=== PATIENT | male | born 1990 | race Caucasian/White ===

== ENCOUNTER 2018-07-02 13:25 | Emergency (ER) | payer BC, OTHER ==
[2018-07-02 13:38] VITALS: BP 155/77; PULSE 78; TEMP 98.3; BMI 27.7
--- NOTE | 2018-07-02 14:07 | PDOC ---
History of Present Illness - General Chief Complaint: Injury Stated Complaint: RIGHT MIDDLE FINGER INJURY Time Seen by Provider: 07/02/18 13:56 - History of Present Illness Initial Comments: 07/02/18 18:06 Chief complaint: Finger injury History of present illness: Patient was working with hand tools, smashed the tip of his right third finger with the handle of a wrench. Pain of the distal phalanx. No other injuries Review of systems: Admits numbness and tingling of the distal pulp. Denies difficulty with movement of the DIPJ. Otherwise reviewed and negative Past medical history: Healthy male, no significant medical or surgical problems Social/family history reviewed and noncontributory Physical exam: Alert oriented well-developed well-nourished no acute distress cooperative Afebrile, vital signs normal Physical exam is entirely normal except for the right third finger. There is swelling ecchymoses and tenderness of the distal pulp, but this is well removed from the DIPJ. There is also a less than 25% subungual hematoma with no disruption of the nail or nailbed. There is no deformity of the fingertip. Full flexion and extension of the DIPJ. The skin is completely intact and there is no suggestion of pressure on the skin from underlying fracture X-ray: Comminuted fracture of the tuft. Minimal displacement. Alignment appears good. No penetration of skin. Impression: Closed fracture of the distal phalanx, no joint involvement Plan: Rest, elevation, analgesics, splinting for comfort. Follow-up with career placement specialist for further treatment. Patient fully ambulatory and in no distress upon discharge to follow-up as directed Past History - Past Medical History Allergies/Adverse Reactions: Allergies Allergy/AdvReac Type Severity Reaction Status Date / Time No Known Allergies Allergy Verified 07/02/18 13:27 Home Medications: Ambulatory Orders No Home Medications 0 dose .ROUTE UTDICT 06/02/12 Ibuprofen 800 mg PO QID PRN #20 tablet 07/02/18 Anemia: No Asthma: No Cancer: No Cardiac Disorders: No CVA: No COPD: No CHF: No Dementia: No Diabetes: No GI Disorders: No Disorders: No HTN: No Hypercholesterolemia: No Liver Disease: No Seizures: No Thyroid Disease: No - Immunization History Td Vaccination: Yes - Suicide/Smoking/Psychosocial Hx Smoking Status: No Smoking History: Current some day smoker Have you smoked in the past 12 months: Yes Number of Cigarettes Smoked Daily: 10 Information on smoking cessation initiated: Yes 'Breaking Loose' booklet given: 07/02/18 Hx Alcohol Use: Yes (WEEKENDS) Drug/Substance Use Hx: No Substance Use Type: None Hx Substance Use Treatment: No *Physical Exam - Vital Signs Last Vital Signs Temp Pulse Resp BP Pulse Ox 98.3 F 78 16 155/77 100 07/02/18 13:26 07/02/18 13:26 07/02/18 13:26 07/02/18 13:26 07/02/18 13:26 *DC/Admit/Observation/Transfer Diagnosis at time of Disposition: Fracture of distal phalanx of finger Qualifiers: Encounter type: initial encounter Finger: middle finger Fracture type: closed Fracture alignment: nondisplaced Laterality: right Qualified Code(s): S62.662A - Nondisplaced fracture of distal phalanx of right middle finger, initial encounter for closed fracture - Discharge Dispostion Disposition: HOME Condition at time of disposition: Stable Decision to Admit order: No - Prescriptions Prescriptions: Ibuprofen 800 mg PO QID PRN #20 tablet PRN Reason: Pain - Referrals Referrals: Vernon Holly MD [Staff Physician] - 1 week - Patient Instructions Printed Discharge Instructions: DI for Finger Fracture Additional Instructions: Ice and elevation of the hand above the level of your heart may help to decrease the pain and throbbing. Rest, pain medication as needed See career placement specialist for further evaluation and treatment as directed. - Post Discharge Activity Forms/Work/School Notes: Back to Work
[2018-07-02] MEDS ORDERED: IBUPROFEN 400 MG TABLET (FP) PO ONE ×2 (14:25→14:45)
== END 2018-07-02 15:37 | disposition home or self-care (01) ==
LOC: FER 13:25
PROC: 2W3JX1Z Immobilization of Right Finger using Splint (ICD-10-PCS; principal; 2018-07-02)
DX: S62.662A Nondisplaced fracture of distal phalanx of right middle finger, initial encounter for closed fracture (principal); W23.0XXA Caught, crushed, jammed, or pinched between moving objects, initial encounter; Y93.89 Activity, other specified; Y92.9 Unspecified place or not applicable; F17.210 Nicotine dependence, cigarettes, uncomplicated
CPT/HCPCS: 73140-TC-RT-FY; 99281-25

== ENCOUNTER 2021-05-29 00:29 | Emergency (ER) | payer OTHER ==
[2021-05-29 00:37] VITALS: PULSE 80; TEMP 98; BMI 26.5
[2021-05-29 01:33] VITALS: BP 145/93
== END 2021-05-29 02:07 | disposition home or self-care (01) ==
LOC: FER 00:29
DX: R07.89 Other chest pain (principal)
CPT/HCPCS: 36415; 82550; 82553; 84484; 93005; 99284-25

== ENCOUNTER 2022-10-09 08:48 | Day surgery (SDC) | payer OTHER ==
[2022-10-06 17:00] VITALS: BMI 26.1
[2022-10-09] MEDS ORDERED: EPINEPHrine 1:1,000 1,000 MCG/ML ML ONE (10:12)
[2022-10-09] MEDS ORDERED: ONDANSETRON 4 MG/2 ML VIAL ONE ×2 (10:22→11:07)
[2022-10-09] MEDS ORDERED: DEXAMETHASONE SOD PHOSPHATE 4 MG/1 ML VIAL ONE ×2 (10:22→11:07)
[2022-10-09] MEDS ORDERED: PROPOFOL 40 ML ONE (10:23)
[2022-10-09] MEDS ORDERED: MIDAZOLAM HCL 2 MG/2 ML SINGLE DOSE VIAL ONE (10:30)
[2022-10-09] MEDS ORDERED: HYDROmorphone HCL/PF 1 MG/ML VIAL ONE (10:46)
[2022-10-09] MEDS ORDERED: ceFAZolin SODIUM 1 GM VIAL ONE (12:11)
[2022-10-09] MEDS ORDERED: PROPOFOL 20 ML ONE (12:53)
[2022-10-09] MEDS ORDERED: PROPOFOL 60 ML ONE (13:16)
[2022-10-09] MEDS ORDERED: PROPOFOL 80 ML ONE (14:09)
[2022-10-09] MEDS ORDERED: GLYCOPYRROLATE 0.2 MG/1 ML VIAL ONE (14:22)
[2022-10-09] MEDS ORDERED: ONDANSETRON 4 MG/2 ML VIAL IVPUSH PRN (15:13)
[2022-10-09] MEDS ORDERED: ACETAMINOPHEN 325 MG TABLET (FP) PO PRN (15:13)
[2022-10-09] MEDS ORDERED: oxyCODONE HCL 5 MG TABLET PO PRN ×2 (15:13)
[2022-10-09] MEDS ORDERED: FENTANYL CITRATE/PF 50 MCG/ML VIAL ONE (15:51)
[2022-10-09] MEDS ORDERED: oxyCODONE HCL 5 MG TABLET ONE (16:26)
[2022-10-09 16:32] VITALS: TEMP 97.8
[2022-10-09 17:01] VITALS: BP 138/64; PULSE 80; RESP 16
== END 2022-10-09 17:20 | disposition home or self-care (01) ==
LOC: FASU 08:48
PROVIDERS: ATTEND Orthopaedic Surgery Sports Medicine
PROC: 0LS44ZZ Reposition Left Upper Arm Tendon, Percutaneous Endoscopic Approach (ICD-10-PCS; 2022-10-09)
PROC: 0RHK44Z Insertion of Internal Fixation Device into Left Shoulder Joint, Percutaneous Endoscopic Approach (ICD-10-PCS; 2022-10-09)
PROC: 0LM24ZZ Reattachment of Left Shoulder Tendon, Percutaneous Endoscopic Approach (ICD-10-PCS; 2022-10-09)
PROC: 0LM24ZZ Reattachment of Left Shoulder Tendon, Percutaneous Endoscopic Approach (ICD-10-PCS; 2022-10-09)
PROC: 0RNK4ZZ Release Left Shoulder Joint, Percutaneous Endoscopic Approach (ICD-10-PCS; principal; 2022-10-09 12:31)
DX: M75.122 Complete rotator cuff tear or rupture of left shoulder, not specified as traumatic (principal); M75.52 Bursitis of left shoulder; S43.432A Superior glenoid labrum lesion of left shoulder, initial encounter; X58.XXXA Exposure to other specified factors, initial encounter; Y92.9 Unspecified place or not applicable; Y93.9 Activity, unspecified
CPT/HCPCS: 29807; 29826; 29827; 29828; C1713

== ENCOUNTER 2023-12-10 10:41 | Day surgery (SDC) | payer OTHER ==
[2023-12-02 15:22] VITALS: BMI 26.5
[2023-12-10] MEDS ORDERED: EPINEPHrine 1:1,000 1,000 MCG/ML ML ONE (12:20)
[2023-12-10] MEDS ORDERED: LACTATED RINGERS SOLUTION 1,000 ML IV SCH (13:45)
[2023-12-10] MEDS ORDERED: oxyCODONE HCL 5 MG TABLET PO PRN (13:45)
[2023-12-10] MEDS ORDERED: ROPIVACAINE HCL 0.5% 30ML VIAL ONE (13:47)
[2023-12-10] MEDS ORDERED: ACETAMINOPHEN INJECTION 100 ML IVPB ONE (13:47)
[2023-12-10] MEDS ORDERED: MIDAZOLAM HCL 2 MG/2 ML SINGLE DOSE VIAL ONE (13:47)
[2023-12-10] MEDS ORDERED: PROPOFOL 100 ML ONE (14:07)
[2023-12-10] MEDS ORDERED: LIDOCAINE HCL/EPINEPHRINE/PF 20 ML VIAL ONE (15:49)
[2023-12-10] MEDS ORDERED: LIDOCAINE 1%/EPI 1:100000 (20 ML MULTI DOSE VIAL) ONE (15:49)
[2023-12-10] MEDS ORDERED: PROPOFOL 40 ML ONE (16:16)
[2023-12-10] MEDS ORDERED: ONDANSETRON 4 MG/2 ML VIAL ONE (17:47)
[2023-12-10] MEDS ORDERED: FENTANYL CITRATE/PF 50 MCG/ML VIAL ONE (17:47)
[2023-12-10] MEDS: ONDANSETRON 4 MG/2 ML VIAL IVPUSH PRN (17:50)
[2023-12-10 18:14] VITALS: PULSE 55
[2023-12-10 18:19] VITALS: TEMP 97.4
[2023-12-10] MEDS: oxyCODONE HCL 5 MG TABLET ONE (18:20)
[2023-12-10 18:37] VITALS: BP 139/75; RESP 18
== END 2023-12-10 18:46 | disposition home or self-care (01) ==
LOC: FASU 10:41
PROVIDERS: ATTEND Orthopaedic Surgery Sports Medicine
PROC: 0LS44ZZ Reposition Left Upper Arm Tendon, Percutaneous Endoscopic Approach (ICD-10-PCS; 2023-12-10)
PROC: 0RBK4ZZ Excision of Left Shoulder Joint, Percutaneous Endoscopic Approach (ICD-10-PCS; principal; 2023-12-10 14:49)
DX: S43.432D Superior glenoid labrum lesion of left shoulder, subsequent encounter (principal); M75.52 Bursitis of left shoulder; M75.22 Bicipital tendinitis, left shoulder; X58.XXXD Exposure to other specified factors, subsequent encounter
CPT/HCPCS: 94760; C1713; J0131